=== PATIENT | female | born 1995 | race Hispanic/Latino ===

== ENCOUNTER 2019-06-30 05:18 | Emergency (ER) | payer OTHER ==
[~2019-06-30] VITALS: Ht 147.3 cm; Wt 82.2 kg
[2019-06-30] MEDS ORDERED: PANTOPRAZOLE 40MG INJ (PROTONIX) (C9113) IV ONE (06:45)
[2019-06-30 07:15] LABS: MEAN CORPUSCULAR HEMOGLOBIN 30.2 pg (27.0-33.0); MEAN CORPUSCULAR HGB CONC 33.3 g/dl (32.0-36.5); MEAN CORPUSCULAR VOLUME 90.5 fl (80.0-96.0); PLATELET COUNT, AUTOMATED 382 10^3/uL (150-450); RED BLOOD COUNT 4.64 10^6/uL (4.00-5.40); WHITE BLOOD COUNT 10.6 10^3/uL (4.0-10.0)
[2019-06-30 07:24] LABS: INR 1.06; PROTHROMBIN TIME 13.5 SECONDS (11.8-14.0)
[2019-06-30 07:25] LABS: PARTIAL THROMBOPLASTIN TIME 32.4 SECONDS (25.0-38.4)
[2019-06-30 07:27] LABS: D-DIMER QUANT 442.31 ng/ml (<500)
[2019-06-30 07:44] LABS: ALBUMIN 4.1 GM/DL (3.2-5.2); ALT/SGPT 227 U/L (12-78); BILIRUBIN,DIRECT 0.1 MG/DL (0.0-0.2); BILIRUBIN,TOTAL 0.2 MG/DL (0.2-1.0); BLOOD UREA NITROGEN 9 MG/DL (7-18); CALCIUM LEVEL 9.2 MG/DL (8.5-10.1); CARBON DIOXIDE LEVEL 24 MEQ/L (21-32); CHLORIDE LEVEL 109 MEQ/L (98-107); CREATININE FOR GFR 0.55 MG/DL (0.55-1.30); GLOMERULAR FILTRATION RATE > 60.0 (>60); GLUCOSE, FASTING 94 MG/DL (70-100); LIPASE 86 U/L (73-393); POTASSIUM SERUM 4.5 MEQ/L (3.5-5.1); SODIUM LEVEL 139 MEQ/L (136-145)
[2019-06-30 07:46] LABS: CK-MB VALUE MASS < 1.0 NG/ML (<3.6); CPK CREATINE PHOSPHOKINASE 971 U/L (26-192); TROPONIN I < 0.02 NG/ML (< 0.10)
[2019-06-30 07:49] LABS: HCG, SERUM QUALITATIVE NEGATIVE (NEGATIVE)
[2019-06-30 07:51] LABS: ATYPICAL LYMPH 5 % (0-5); EOSINOPHILS 3 % (0-3); LYMPHOCYTES 46 % (16-44); MONOCYTES 5 % (0-5); NEUTROPHILS 41 % (28-66)
[2019-06-30 07:52] LABS: PLATELET ESTIMATE NORMAL (NORMAL)
[2019-06-30 07:53] LABS: ANISOCYTOSIS 1+; DOHLE BODIES 1+
--- NOTE | 2019-06-30 08:26 | REP ---
Chest x-ray: Two views. History: Chest pain . Comparison study: No comparison . Findings: The lungs are well inflated and free of infiltrate. The pleural angles are sharp. The heart size is normal. Pulmonary vasculature is not increased. No significant bony abnormality is seen. Impression: Negative chest x-ray. Electronically Signed by Jesus Busby MD 06/30/2019 08:17 A
[2019-06-30] MEDS ORDERED: ONDANSETRON 4MG/2ML VIAL (J2405) IV ONE (09:00)
[2019-06-30] MEDS ORDERED: NS 1,000 ML IV ONE (09:00)
[2019-06-30] MEDS: GASTROGRAFIN SOLUTION 30ML PO SCH ×2 (09:56→10:34)
[2019-06-30] MEDS ORDERED: ISOVUE-370 76% 100ML VIAL (Q9967) As Ordered ONE (11:04)
--- NOTE | 2019-06-30 11:54 | REP ---
CT of the abdomen and pelvis with IV and bowel contrast for chest/abdominal pain: There are no comparisons. The visualized lung rubio are unremarkable. There is decreased attenuation throughout the hepatic parenchyma compatible with hepato steatosis. The hepatic parenchyma otherwise is unremarkable. The gallbladder, pancreas and spleen are unremarkable. The adrenals and kidneys are unremarkable. The abdominal aorta is unremarkable. There is no periaortic adenopathy or mass. There is no bowel distension or obstruction. Mesentery is unremarkable. There is no bowel wall thickening. Pelvis: The appendix is unremarkable. The uterus and adnexa are unremarkable. The bladder is unremarkable. There is no adenopathy or ascites. Impression: Essentially negative CT of the abdomen and pelvis. Electronically Signed by Kendrick Griffin MD 06/30/2019 11:45 A
[2019-06-30] MEDS ORDERED: SUCR1ORA PO (12:21)
[2019-06-30] MEDS ORDERED: PANT20TA2 PO (12:21)
[2019-06-30 12:30] VITALS: BP 116/85
[2019-06-30] MEDS ORDERED: SUCRALFATE SUSP 1GM/10ML UD PO ONE (12:30)
[2019-06-30] MEDS ORDERED: GI COCKTAIL 50ML BTL(HYOSCYAMINE/MAALOX/LIDOCAINE VISCOUS)(1:3:1) PO ONE (12:30)
--- NOTE | 2019-06-30 15:02 | ECGEPIP ---
[facility] - ED Test Date: 2019-06-30 Pat Name: MARIANGEL REEVES Department: Room: - Gender: Female [employer] Shifter: klaus : 1995 Requested By: Ethel Ovalles [facility] Order Number: [id number] Reading MD: Astrid Marshall Measurements Intervals [place] Rate: 90 P: 49 NE: 152 QRS: 26 QRSD: 90 T: 17 QT: 360 QTc: 441 Interpretive Statements SINUS RHYTHM NO PRIOR Electronically Signed on 06-30-2019 15:02:32 EST by Astrid Marshall
== END 2019-06-30 12:38 | disposition home or self-care (01) ==
LOC: M ED 05:18
DX: K21.0 Gastro-esophageal reflux disease with esophagitis (principal); J45.909 Unspecified asthma, uncomplicated; Z88.0 Allergy status to penicillin
CPT/HCPCS: 71046; 74177; 80048; 80076; 82550; 82553; 83690; 84484; 84703; 85025; 85379; 85610; 85730; 93005; 96374; 96375; 99284; C9113; J2405; Q9963; Q9967